=== PATIENT | male | born 1955 | race Caucasian/White ===

== ENCOUNTER 2016-11-30 16:39 | Emergency (ER) | payer BC, OTHER ==
[2016-11-30 16:56] VITALS: TEMP 97.8; O2SAT 95
--- NOTE | 2016-11-30 17:09 | ED.PDOC ---
History of Present Illness - General Chief Complaint: Syncope/Near Syncope Stated Complaint: dizzy, nausea, sweating Time Seen by Provider: 11/30/16 17:01 Source: patient, family Exam Limitations: no limitations Additional Information: PT WAS AT REST AT HOME. HE LEANED FWD, AT WHICH POINT HE FELT LIGHT HEADED, BECAME DIZZY AND SWEATY FOR 2 MINUTES, THEN RETURNED TO NORMAL WHEN HE MOVED HIMSELF TO A CHAIR. ASX IN ER. NO NVD/CP/SOB/FCS. PT STATES HE MAY BE DEHYDRATED - HASN'T HAD A DROP OF LIQUIDS TODAY, MOUTH FEELS DRY. - History of Present Illness Timing/Prior Episodes: no prior history Precipitating Factors: none Context: standing Loss of Consciousness: no loss of consciousness Current Symptoms: back to normal Allergies/Adverse Reactions: Allergies Ethanol [From Taxol] Allergy (Verified 11/30/16 16:56) Paclitaxel [From Taxol] Allergy (Verified 11/30/16 16:56) Polyoxyethylated [place] Oil [From Taxol] Allergy (Verified 11/30/16 16:56) Home Medications: Ambulatory Orders Atorvastatin Calcium [Lipitor] 40 mg PO DAILY 11/30/16 Lisinopril 10 mg PO DAILY 11/30/16 Metoprolol Tartrate [Lopressor] 25 mg PO DAILY 11/30/16 Review of Systems - Review of Systems Constitutional: Denies: chills, diaphoresis, fever, weakness EENTM: States: no symptoms reported Respiratory: States: no symptoms reported. Denies: cough, short of breath, wheezing Cardiology: States: no symptoms reported. Denies: chest pain, palpitations Gastrointestinal/Abdominal: States: no symptoms reported Genitourinary: States: no symptoms reported Musculoskeletal: States: no symptoms reported Skin: States: no symptoms reported Neurological: States: no symptoms reported. Denies: headache, paresthesia, tingling, weakness Endocrine: States: no symptoms reported Hematologic/Lymphatic: States: no symptoms reported All other Systems: Reviewed and Negative Past Medical History (General) - Patient Medical History Hx Cardiac Disorders: Yes - stent x1 Hx Hypertension: Yes Hx Cancer: Yes - Vaccination History Hx Tetanus, Diphtheria Vaccination: - unknown Hx Influenza Vaccination: Yes Hx Pneumococcal Vaccination: Yes - Social History Hx Tobacco Use: No Hx Alcohol Use: Yes - rare Hx Substance Use: No Hx Substance Use Treatment: No Hx Depression: No - Activities of Daily Living Hospice Agency (if applicable):: None - Female History Patient is a Female of Child Bearing Age (10 -59 yrs old): No Patient : No Physical Exam - Physical Exam General Appearance: Alert, Comfortable Eyes, Ears, Nose, Throat Exam: PERRL/EOMI, normal ENT inspection, TMs normal Neck: non-tender, full range of motion, supple Cardiovascular/Respiratory: regular rate, rhythm, normal peripheral pulses, no JVD, normal breath sounds, no respiratory distress, other - 2/6 SYSTOLIC MURMUR , PT STATES HE HAS ALWAYS HAD IT AND PREVIOUS W/U NEG. Gastrointestinal/Abdominal: normal bowel sounds, non tender, soft Mental Status: alert, oriented x 3 supervisor maintenance Exam: normal hearing, normal speech, PERRL Coordination/Gait: normal finger to nose, normal gait Motor/Sensory: no motor deficit, no sensory deficit, no pronator drift, negative Babinski's sign Skin Exam: warm/dry, pallor Lymphatic: no adenopathy Progress - Progress Progress: NO S/SX OF CARDIAC, STROKE, SEIZURE. ORTHOSTATIC VS OBTAINED AND NEG. CBC, CMP NEG. EKG SINUS; NO ST CHANGES. SUSPECT MILD HYPOVOLEMIA GIVEN NO PO FLUID TODAY, DELAYED CAP REFILL, MM DRY. GAVE 500 ML BOLUS AND PT FEELS WELL. DC TO HOME. PT STATES HE IS CALLING HIS PCP FOR REGULAR F/U THIS WEEK ([facility]) 11/30/16 19:04 11/30/16 19:06 Departure - Departure Clinical Impression: Pre-syncope, Dehydration, mild Disposition: Discharge to Home or Self Care Condition: Good Departure Forms: ED Discharge - Pt. Copy, Patient Portal Self Enrollment Instructions: DI for Syncope in Adults (Fainting) Diet: resume usual diet Activity: increase activity as tolerated Referrals: Reynold Eubanks MD [Primary Care Provider] - 1-5 Days Home Medications: Ambulatory Orders Atorvastatin Calcium [Lipitor] 40 mg PO DAILY 11/30/16 Lisinopril 10 mg PO DAILY 11/30/16 Metoprolol Tartrate [Lopressor] 25 mg PO DAILY 11/30/16 Additional Instructions: Please schedule a visit with your regular doctor this week for a checkup. Please return to the ER if your symptoms should return. Please drink at least 24 oz of water per day.
[2016-11-30] MEDS ORDERED: SODIUM CHLORIDE 0.9% 500ML 500 ML IVS ONE (17:54)
[2016-11-30 19:21] VITALS: BP 143/81
== END 2016-11-30 19:21 | disposition home or self-care (01) ==
LOC: ER 16:39
DX: E86.0 Dehydration (principal); R55 Syncope and collapse; Z88.8 Allergy status to other drugs, medicaments and biological substances; I10 Essential (primary) hypertension; Z98.61 Coronary angioplasty status; Z85.9 Personal history of malignant neoplasm, unspecified
CPT/HCPCS: 36415; 80053; 85025; 93005; J7040

== ENCOUNTER → 2016-12-17 | Outpatient (CLI) | payer OTHER | END | disposition home or self-care (01) | LOC: GMAB 10:11 | PROVIDERS: ATTEND Family Medicine | DX: Z12.5 Encounter for screening for malignant neoplasm of prostate (principal); I10 Essential (primary) hypertension ==

== ENCOUNTER 2018-07-01 06:23 | Emergency (ER) | payer MEDICARE, OTHER ==
[2018-07-01] MEDS ORDERED: NITROGLYCERIN 0.4 MG 25 EA TAB SL ONE ×2 (06:25→06:29)
[2018-07-01] MEDS ORDERED: ASPIRIN TABLET 325 MG TAB ONE (06:26)
[2018-07-01] MEDS ORDERED: ASPIRIN TABLET 325 MG TAB PO ONE (06:29)
[2018-07-01] MEDS ORDERED: SODIUM CHLORIDE 0.9% (FLUSH) 10 ML SYG IV PRN (06:29)
[2018-07-01 06:48] VITALS: TEMP 97.6
[2018-07-01] MEDS ORDERED: SUCRALFATE 1 GM/10 ML 1 GM UD PO ONE (06:50)
[2018-07-01] MEDS ORDERED: ALUM & MAG HYDROX-SIMETHICONE 30 ML, LIDOCAINE VISCOUS 2% 15 ML PO ONE ×2 (06:50)
[2018-07-01] MEDS ORDERED: LIDOCAINE HCL 2% (MOUTH-THROAT) 15 ML UD ONE (06:52)
[2018-07-01] MEDS ORDERED: ALUM & MAG HYDROX-SIMETHICONE 30 ML UD ONE (06:52)
--- NOTE | 2018-07-01 06:59 | ED.PDOC ---
History of Present Illness - General Source: patient Exam Limitations: no limitations - History of Present Illness Initial Comments: Álvaro Jackson 63 y/o male stated that after playing cards with friend yesterday at about 1700h went home felt weak ate a burger but also rode his atv then rested at about 2100 hour felt burning sensation epigastrium felt like heartburn which went up to his chest.No diaphoresis,no n/v,no dizziness ,no palpitations.Had hx of mi s/p stent in the past and had re-occlusion of previously placed stent last year and was re-done by Dr. Vail his wool presser. Timing/Duration: 7-24 hours Severity: moderate Location: epigastric Activities at Onset: none Prior Chest Pain/Cardiac Workup: cardiac cath, echocardiography, heart attack, other - stent cardiac Improving Factors: nothing Worsening Factors: nothing Nitro Today/Relief: provided by ED, no relief Aspirin Treatment Today: 325 mg x 1, provided by ED <Kian Uribe - Last Filed: 07/01/18 07:03> <DUONG RECINOS - Last Filed: 07/01/18 08:57> - General Chief Complaint: Cardiovascular Problem Stated Complaint: chest pain, heartburn Time Seen by Provider: 07/01/18 06:37 - History of Present Illness Allergies/Adverse Reactions: Allergies Ethanol [From Taxol] Allergy (Verified 11/30/16 16:56) Paclitaxel [From Taxol] Allergy (Verified 11/30/16 16:56) Polyoxyethylated [place] Oil [From Taxol] Allergy (Verified 11/30/16 16:56) Home Medications: Ambulatory Orders Atorvastatin Calcium [Lipitor] 80 mg PO DAILY 11/30/16 Lisinopril 10 mg PO DAILY 11/30/16 Metoprolol Tartrate [Lopressor] 25 mg PO BID 11/30/16 Aspirin [Aspirin Adult Low Dose] 81 mg PO DAILY 07/01/18 Clopidogrel Bisulfate [Plavix] 75 mg PO QD 07/01/18 Omeprazole Magnesium [Prilosec Otc] 20 mg PO PRN PRN 07/01/18 Review of Systems - Review of Systems Constitutional: States: no symptoms reported EENTM: States: no symptoms reported Respiratory: States: no symptoms reported Cardiology: States: see HPI Gastrointestinal/Abdominal: States: see HPI Musculoskeletal: States: no symptoms reported Skin: States: see HPI Neurological: States: no symptoms reported Endocrine: States: no symptoms reported <Kian Uribe R - Last Filed: 07/01/18 07:03> Past Medical History (General) - Patient Medical History Hx Cardiac Disorders: Yes Hx Hypertension: Yes Hx Cancer: Yes - melanoma- left lung, bowel Surgical History: cancer surgery, other - lung,colo-resection - Vaccination History Hx Tetanus, Diphtheria Vaccination: - unknown Hx Influenza Vaccination: Yes Hx Pneumococcal Vaccination: Yes - Social History Hx Tobacco Use: No Hx Alcohol Use: Yes - rare Hx Substance Use: No Hx Substance Use Treatment: No Hx Depression: No - Female History Patient : No <Kian Uribe R - Last Filed: 07/01/18 07:03> Family Medical History - Family History Mother Living Status: Hx Cardiac Disease: Yes - mom Hx Family Cancer: Yes - lungs -dad <Kian Uribe R - Last Filed: 07/01/18 07:03> Physical Exam - Physical Exam General Appearance: Alert, Anxious, Comfortable, No apparent distress Eyes, Ears, Nose, Throat Exam: normal ENT inspection Neck: non-tender, full range of motion, supple, normal inspection Respiratory: chest non-tender, lungs clear, normal breath sounds, no respiratory distress Cardiovascular/Chest: normal peripheral pulses, regular rate, rhythm, systolic murmur - g 3/6 apex and 2nd LICS Peripheral Pulses: radial,right: 2+, radial,left: 2+ Gastrointestinal/Abdominal: normal bowel sounds, non tender, soft, other - umbilical hernia Extremity: normal range of motion, non-tender, no pedal edema, no calf tenderness Skin Exam: normal color, warm/dry <Kian Uribe R - Last Filed: 07/01/18 07:03> Progress - Progress Progress: 07/01/18 07:03 Vital Signs - 8 hr 07/01/18 07/01/18 07/01/18 06:30 06:36 06:48 Temperature 97.6 F 97.6 F Pulse Rate 87 87 Pulse Rate [ apical] Pulse Rate [ 81 85 left] Respiratory 18 18 Rate Blood Pressure 154/103 136/83 [left] O2 Sat by Pulse 99 99 95 Oximetry 07/01/18 06:49 Temperature Pulse Rate Pulse Rate [ 70 apical] Pulse Rate [ 84 left] Respiratory Rate Blood Pressure [left] O2 Sat by Pulse Oximetry - EKG/XRAY/CT EKG: Sinus, RBBB Comments: HR-79,LAD <RonyKian R - Last Filed: 07/01/18 07:03> - Progress Progress: 07/01/18 07:[address] Uribe and history and exam repeated and verified. Patient is a 63 male who began having some difficulty with heartburn last night. He stated that he been playing cards with some friends and that he was a little bit nauseous. He had she been to that not having much to eat that day and he went out and got hamburger. Patient state when he went home he started feeling a little bit better from the nausea but then he started having heartburn. He took a Prilosec and was able to get to sleep. Patient states this morning on awakening he had worsening heartburn again at that time it was much more severe. Patient began to get worried because when he had his stent placed 8 years ago he also thought was heartburn and dismissed it for several hours before coming in. Patient states it doesn't feel exactly like it did when it occurred 8 years ago but has been a long time and he was concerned. Patient has had no fever, chills, cough or cold symptoms. Patient does readily see his wool presser and his stent was opened up in December of this year. Patient has had left lung removal but denies any shortness of breath. Patient has no swelling of his legs or redness and currently he is better after GI cocktail and belching. HEENT: No jaundice status post cataract surgery on the right, normocephalic/ atraumatic, OP without erythema, edema, exudate CV: Holosystolic 3/6 murmur with regular rate and rhythm Lungs: Clear to auscultation on the right with no crackles or wheezes Abdomen: Soft, nontender, nondistended, positive bowel sounds Extremities: No cyanosis, clubbing, or edema Neuro: Alert and oriented to person place and time no focal deficits 07/01/18 08:55 EKG received from outside hospital from 01/28/18 and no change noted from either EKG done today. Patient is now asymptomatic - Results/Orders Results/Orders: 07/01/18 06:29 Sodium Chloride 0.9% (Flush) [Saline Flush Syringe] 10 ml IV PRN PRN 07/01/18 06:30 IV Care:Saline Lock per Protoc QSHIFT Telemetry .ONCE EKG Stat Pulse Ox Stat Laboratory Results WBC 8.8 K/mm3 (4.8-10.8) 07/01/18 06:30 RBC 5.16 M/mm3 (4.70-6.10) 07/01/18 06:30 Hgb 16.1 gm/dL (14.0-18.0) 07/01/18 06:30 Hct 48.4 % (42.0-52.0) 07/01/18 06:30 MCV 93.7 fl (80.0-94.0) 07/01/18 06:30 MCH 31.1 pg (27.0-31.0) H 07/01/18 06:30 MCHC 33.3 g/dL (33.0-37.0) 07/01/18 06:30 RDW 14.2 % (11.5-14.5) 07/01/18 06:30 Plt Count 305 K/mm3 (130-400) 07/01/18 06:30 MPV 7.6 fl (7.40-10.4) 07/01/18 06:30 Absolute Neuts (auto) 5.40 K/uL (1.8-6.8) 07/01/18 06:30 Absolute Lymphs (auto) 2.30 K/uL (1.0-3.4) 07/01/18 06:30 Absolute Monos (auto) 0.80 K/uL (0.2-0.8) 07/01/18 06:30 Absolute Eos (auto) 0.20 K/uL (0.0-0.4) 07/01/18 06:30 Absolute Basos (auto) 0.10 K/uL (0.0-0.1) 07/01/18 06:30 Neutrophils % 61.5 % (42.0-78.0) 07/01/18 06:30 Lymphocytes % 26.1 % (20.0-50.0) 07/01/18 06:30 Monocytes % 8.6 % (2.0-9.0) 07/01/18 06:30 Eosinophils % 2.8 % (1.0-5.0) 07/01/18 06:30 Basophils % 1.0 % (0.0-2.0) 07/01/18 06:30 PT 9.6 SECONDS (9.0-10.9) 07/01/18 06:30 INR 0.96 (0.9-1.15) 07/01/18 06:30 PTT (SP) 22.3 SECONDS (21.8-31.6) 07/01/18 06:30 D-Dimer, Quantitative 0.66 mg/L FEU (0-0.49) H* 07/01/18 06:30 Sodium 141 mmol/L (135-145) 07/01/18 06:30 Potassium 4.2 mmol/L (3.6-5.0) 07/01/18 06:30 Chloride 104 mmol/L (101-111) 07/01/18 06:30 Carbon Dioxide 28 mmol/L (21-31) 07/01/18 06:30 Anion Gap 13.2 (12-18) 07/01/18 06:30 BUN 16 mg/dL (7-18) 07/01/18 06:30 Creatinine 0.91 mg/dL (0.6-1.3) 07/01/18 06:30 BUN/Creatinine Ratio 17.6 (10-20) 07/01/18 06:30 Random Glucose 165 mg/dL (70-105) H 07/01/18 06:30 Serum Osmolality 286.1 mOsm/L (275-295) 07/01/18 06:30 Calcium 9.2 mg/dL (8.4-10.2) 07/01/18 06:30 Magnesium 2.0 mg/dL (1.8-2.5) 07/01/18 06:30 Total Bilirubin 0.8 mg/dL (0.2-1.0) 07/01/18 06:30 Direct Bilirubin < 0.1 mg/dL (0-0.2) 07/01/18 06:30 Indirect Bilirubin 0.7 mg/dL (0.2-0.8) 07/01/18 06:30 AST 25 IU/L (10-42) 07/01/18 06:30 ALT 38 IU/L (10-60) 07/01/18 06:30 Alkaline Phosphatase 65 IU/L (42-121) 08/30/18 06:30 Creatine Kinase 108 IU/L (38-174) 07/01/18 06:30 CK-MB (CK-2) 1.3 ng/mL (0.0-4.4) 07/01/18 06:30 CK-MB (CK-2) % Not Reportable 07/01/18 06:30 Troponin I < 0.02 ng/mL (0.01-0.05) 07/01/18 06:30 B-Natriuretic Peptide 46.9 pg/ml (0-100) 07/01/18 06:30 Serum Total Protein 7.6 gm/dL (6.4-8.2) 07/01/18 06:30 Albumin 4.7 g/dl (3.2-5.5) 07/01/18 06:30 <DUONG RECINOS - Last Filed: 07/01/18 08:57> Departure <Kian Uribe - Last Filed: 07/01/18 07:03> - Departure Diet: bland diet <DUONG RECINOS - Last Filed: 07/01/18 08:57> - Departure Clinical Impression: GERD (gastroesophageal reflux disease) Qualifiers: Esophagitis presence: esophagitis presence not specified Qualified Code(s): K21.9 - Gastro-esophageal reflux disease without esophagitis Disposition: Discharge to Home or Self Care Condition: Good Departure Forms: ED Discharge - Pt. Copy, Patient Portal Self Enrollment Instructions: DI for Chest Pain Referrals: KIERSTEN MCGEE MD [Primary Care Provider] - 1-2 Weeks Home Medications: Ambulatory Orders Atorvastatin Calcium [Lipitor] 80 mg PO DAILY 11/30/16 Lisinopril 10 mg PO DAILY 11/30/16 Metoprolol Tartrate [Lopressor] 25 mg PO BID 11/30/16 Aspirin [Aspirin Adult Low Dose] 81 mg PO DAILY 07/01/18 Clopidogrel Bisulfate [Plavix] 75 mg PO QD 07/01/18 Omeprazole Magnesium [Prilosec Otc] 20 mg PO PRN PRN 07/01/18 Additional Instructions: follow up with PCP in 1 weeks to check if further treatment needed for GERD. Return to ER for chest pain, shortness of breath, or return of severe GERD.
--- NOTE | 2018-07-01 07:09 | RAD ---
EXAM DESCRIPTION: Chest,1 View CLINICAL HISTORY: 63 years Male, chest pain COMPARISON: 10/17/2008 IMPRESSION: Completely opacified left hemithorax with mediastinal shift to the left again demonstrated. Correlate for prior partial or complete left lung resection. The cardiomediastinal silhouette is obscured. The right lung appears essentially clear. No pneumothorax. No acute osseous abnormality. Electronically signed by: Estuardo Romero MD 07/01/2018 7:07 AM CDT
--- NOTE | 2018-07-01 08:02 | CT ---
PROCEDURE: CTA Chest HISTORY: elevated D-dimer and chest pain Indication: Same as above Comparison: CT of the chest done on 07/04/2010 Technique: CT of the chest was done with intravenous contrast followed by CT angiography of the pulmonary arteries. Coronal, Sagittal and 3D volumetric MIP reconstructions were generated from the acquired data. The patient was injected with radiographic contrast intravenously, without any documented immediate adverse reactions. This exam was performed according to our departmental dose-optimization program, which includes automated exposure control, adjustment of the mA and/or KV according to the patient's size and/or use of iterative reconstruction technique. FINDINGS: There is no visualization of filling defects in the main pulmonary trunk, main right and left pulmonary arteries or their lower order branches to suggest pulmonary embolism. The bilateral main pulmonary arteries are normal in caliber. There is no evidence of interventricular septal deviation or filling defects in the cardiac chambers. 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 The trachea, bilateral mainstem bronchi and the bilateral main segmental bronchi are patent without any intraluminal mass lesions. There is no gross evidence of clinically significant thoracic aortic aneurysm or thoracic aortic dissection. There is no clinically significant pericardial effusion. Coronary artery calcifications are noted There are no pathologically enlarged lymph nodes in the mediastinum, bilateral hilar, bilateral supraclavicular or the bilateral axillary regions. The thoracic bony rib cage appears grossly unremarkable. The visualized thoracic spine shows mild multilevel degenerative change. There is a small hiatal hernia Limited evaluation of the evaluated upper abdomen does not show any gross abnormalities. IMPRESSION: There is no pulmonary embolism, airspace infiltrates or pneumothoraces. Note is again made of left pneumonectomy and mediastinal shift to the left side Electronically signed by: Dennis Vance MD 07/01/2018 8:01 AM CDT Workstation: [id number]
[2018-07-01 08:38] VITALS: O2SAT 96
[2018-07-01 09:06] VITALS: BP 123/70
== END 2018-07-01 09:06 | disposition home or self-care (01) ==
LOC: ER 06:23
DX: K21.9 Gastro-esophageal reflux disease without esophagitis (principal); I10 Essential (primary) hypertension; I51.9 Heart disease, unspecified; Z85.118 Personal history of other malignant neoplasm of bronchus and lung; Z85.038 Personal history of other malignant neoplasm of large intestine; Z85.820 Personal history of malignant melanoma of skin; Z79.82 Long term (current) use of aspirin; Z79.899 Other long term (current) drug therapy; Z88.8 Allergy status to other drugs, medicaments and biological substances

== ENCOUNTER → 2018-09-08 | Outpatient (CLI) | payer MEDICARE, OTHER | LOC: GMAE 12:08 | PROVIDERS: ATTEND Family Medicine | DX: I10 Essential (primary) hypertension (principal); Z12.5 Encounter for screening for malignant neoplasm of prostate | CPT/HCPCS: 84443; G0103 ==

== ENCOUNTER 2019-06-20 06:32 | Emergency (ER) | payer MEDICARE, OTHER ==
[2019-06-20] MEDS ORDERED: CYCLOBENZAPRINE HCL 5 MG TAB PO ONE (07:06)
[2019-06-20] MEDS ORDERED: predniSONE 20 MG TAB PO ONE (07:06)
[2019-06-20] MEDS ORDERED: IBUPROFEN 200 MG TAB PO ONE (07:06)
--- NOTE | 2019-06-20 07:08 | ED.PDOC ---
History of Present Illness - General Chief Complaint: Upper Extremity Injury Stated Complaint: C/O right shoulder pain and neck pain Time Seen by Provider: 06/20/19 06:54 Source: patient Exam Limitations: no limitations - History of Present Illness Initial Comments: pt here for 3 dys of right shoulder pain after straining lifting something on thursday. now with some radiation up and down arm no chest pain or sob. no other trauma. Severity: moderate Improving Factors: nothing Worsening Factors: movement Associated Symptoms: denies symptoms Allergies/Adverse Reactions: Allergies Ethanol [From Taxol] Allergy (Verified 11/30/16 16:56) Paclitaxel [From Taxol] Allergy (Verified 11/30/16 16:56) Polyoxyethylated [place] Oil [From Taxol] Allergy (Verified 11/30/16 16:56) Home Medications: Ambulatory Orders Atorvastatin Calcium [Lipitor] 80 mg PO DAILY 11/30/16 Lisinopril 10 mg PO DAILY 11/30/16 Metoprolol Tartrate [Lopressor] 25 mg PO BID 11/30/16 Aspirin [Aspirin Adult Low Dose] 81 mg PO DAILY 07/01/18 Cyclobenzaprine HCl [Flexeril] 5 mg PO TID PRN #14 tab 06/20/19 predniSONE [Prednisone] 20 mg PO DAILY #3 tab 06/20/19 Review of Systems - Review of Systems Constitutional: States: no symptoms reported EENTM: States: no symptoms reported Respiratory: States: no symptoms reported Cardiology: States: no symptoms reported Gastrointestinal/Abdominal: States: no symptoms reported Genitourinary: States: no symptoms reported Musculoskeletal: States: see HPI Skin: States: no symptoms reported Neurological: States: see HPI Endocrine: States: no symptoms reported All other Systems: No Change from Baseline Past Medical History (General) - Patient Medical History Hx Seizures: No Hx Stroke: No Hx Dementia: No Hx Asthma: No Hx of COPD: No Hx Cardiac Disorders: Yes - 2 stents Hx Congestive Heart Failure: No Hx Pacemaker: No Hx Hypertension: Yes Hx Thyroid Disease: No Hx Diabetes: No Hx Gastroesophageal Reflux: Yes Hx Renal Disease: No Hx Cancer: Yes - melanoma- left lung, bowel Hx of HIV: No Hx Hepatitis C: No Hx MRSA: No Surgical History: other - Vaccination History Hx Tetanus, Diphtheria Vaccination: - unknown Hx Influenza Vaccination: Yes Hx Pneumococcal Vaccination: Yes - Social History Hx Tobacco Use: No Hx Alcohol Use: Yes - rare Hx Substance Use: No Hx Substance Use Treatment: No Hx Depression: No - Female History Patient : No Family Medical History - Family History Mother Living Status: Hx Cardiac Disease: Yes - mom Hx Family Cancer: Yes - lungs -dad Physical Exam - Physical Exam General Appearance: Alert, Comfortable Eye Exam: bilateral normal Ears, Nose, Throat: hearing grossly normal, normal ENT inspection Neck: full range of motion, supple Respiratory: chest non-tender, lungs clear, normal breath sounds, no respiratory distress Cardiovascular/Chest: normal peripheral pulses, regular rate, rhythm, no edema Peripheral Pulses: radial,right: 2+, radial,left: 2+ Gastrointestinal/Abdominal: non tender, soft Rectal Exam: deferred Back Exam: no CVA tenderness, no vertebral tenderness Extremity: normal range of motion, no pedal edema, no calf tenderness, normal capillary refill 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 stretching and topical heat recommended. written for prednisone and flexeril. expect 2 weeks of discomfort. motrin will help as well. er warnings. keep routine fu with pcp. - Results/Orders Results/Orders: ekg shows nsr 77bpm, LAD, RBBB, LAFB, no acute changes when compared to previous. borderline qt interval. Departure - Departure Clinical Impression: Strain of right biceps Qualifiers: Encounter type: initial encounter Qualified Code(s): S46.211A - Strain of muscle, fascia and tendon of other parts of biceps, right arm, initial encounter Disposition: Discharge to Home or Self Care Condition: Fair Departure Forms: ED Discharge - Pt. Copy, Patient Portal Self Enrollment Diet: regular diet Activity: increase activity as tolerated Referrals: KIERSTEN MCGEE MD [Primary Care Provider] - 1-2 Weeks Prescriptions: Cyclobenzaprine HCl [Flexeril] 5 mg PO TID PRN #14 tab PRN Reason: Muscle Spasms predniSONE [Prednisone] 20 mg PO DAILY #3 tab Home Medications: Ambulatory Orders Atorvastatin Calcium [Lipitor] 80 mg PO DAILY 11/30/16 Lisinopril 10 mg PO DAILY 11/30/16 Metoprolol Tartrate [Lopressor] 25 mg PO BID 11/30/16 Aspirin [Aspirin Adult Low Dose] 81 mg PO DAILY 07/01/18 Cyclobenzaprine HCl [Flexeril] 5 mg PO TID PRN #14 tab 06/20/19 predniSONE [Prednisone] 20 mg PO DAILY #3 tab 06/20/19 Additional Instructions: right shoulder neck pain related to biceps proximal tendon strain. stretching and topical heat recommended. written for prednisone and flexeril. expect 2 weeks of discomfort. motrin will help as well. er warnings. keep routine fu with pcp.
[2019-06-20 07:35] VITALS: BP 141/83; TEMP 97.5; O2SAT 96
== END 2019-06-20 07:31 | disposition home or self-care (01) ==
LOC: ER 06:32
DX: S46.211A Strain of muscle, fascia and tendon of other parts of biceps, right arm, initial encounter (principal); I45.10 Unspecified right bundle-branch block; I10 Essential (primary) hypertension; K21.9 Gastro-esophageal reflux disease without esophagitis; Z85.820 Personal history of malignant melanoma of skin; Z85.118 Personal history of other malignant neoplasm of bronchus and lung; Z85.038 Personal history of other malignant neoplasm of large intestine; Z95.5 Presence of coronary angioplasty implant and graft; Z79.82 Long term (current) use of aspirin; Z79.899 Other long term (current) drug therapy; Z88.8 Allergy status to other drugs, medicaments and biological substances; X50.0XXA Overexertion from strenuous movement or load, initial encounter; Y92.9 Unspecified place or not applicable
CPT/HCPCS: 93005; J7512